=== PATIENT | female | born 1985 | race Asian ===

== ENCOUNTER 2020-07-27 14:29 | Emergency (ER) | payer OTHER ==
[2020-07-27 14:44] VITALS: BP 110/59; PULSE 69; TEMP 97.9; BMI 21.4
[2020-07-27 15:23] LABS: URINE APPEARANCE CLEAR; URINE BILIRUBIN NEGATIVE (NEGATIVE); URINE COLOR YELLOW; URINE GLUCOSE (UA) NEGATIVE (NEGATIVE); URINE KETONE NEGATIVE (NEGATIVE); URINE PROTEIN NEGATIVE (NEGATIVE)
[2020-07-27 15:24] LABS: URINE LEUK ESTERASE 1+ (NEGATIVE); URINE NITRITE NEGATIVE (NEGATIVE); URINE UROBILINOGEN 0.2 mg/dL (0.2-1.0)
[2020-07-27 15:25] LABS: EPI CELLS 32.4 /uL (0-25.1); HYALINE CASTS 0.25 /uL (0-3.1); URINE BACTERIA 327.8 /uL (0-1359); URINE RBC 43.4 /uL (0-23.9); URINE WBC 47.6 /uL (0-25.8)
[2020-07-27 15:27] LABS: HCG,QUALITATIVE URINE Negative
[2020-07-27 16:07] LABS: BASO % 0.6 % (0-2.0); EOS % 0.8 % (0-4.5); HEMATOCRIT 34.8 % (32.4-45.2); HEMOGLOBIN 11.5 GM/dL (10.7-15.3); LYMPH % 35.7 % (8-40); MCH 29.4 pg (25.7-33.7); MCHC 32.9 g/dl (32.0-36.0); MEAN CELL VOLUME 89.3 fl (80-96); MEAN PLT VOLUME 6.8 fl (7.5-11.1); MONO % 10.1 % (3.8-10.2); NEUT % 52.8 % (42.8-82.8); PLATELET COUNT 189 K/MM3 (134-434); RDW 14.2 % (11.6-15.6); WHITE BLOOD COUNT 4.6 K/mm3 (4.0-10.0)
[2020-07-27 16:15] LABS: POTASSIUM 3.6 mmol/L (3.5-5.1)
[2020-07-27 16:17] LABS: ALBUMIN 3.8 g/dl (3.4-5.0); BLOOD UREA NITROGEN 13.1 mg/dL (7-18); CALCIUM 9.1 mg/dL (8.5-10.1)
[2020-07-27 16:20] LABS: CREATININE 0.7 mg/dL (0.55-1.3)
[2020-07-27 16:22] LABS: BILIRUBIN,TOTAL 0.5 mg/dL (0.2-1); TOT PROT 7.6 g/dl (6.4-8.2)
== END 2020-07-27 16:52 | disposition home or self-care (01) ==
LOC: JERFT 14:29
DX: R42 Dizziness and giddiness (principal); G44.219 Episodic tension-type headache, not intractable
CPT/HCPCS: 36415; 80053; 81003; 84703; 85025; 87077; 87086; 99284-25; C9803; U0003